=== PATIENT | male | born 1955 | race Caucasian/White ===

== ENCOUNTER 2017-01-21 16:34 | Emergency (ER) | payer MEDICARE, OTHER ==
[2017-01-21 16:56] LABS: BASOPHILS 0.5 % (0.0-2.0); EOSINOPHILS# 0.2 X 10^3uL (0.0-0.4); HEMATOCRIT 31.3 % (42.0-54.0); LYMPHOCYTES# 1.3 X 10^3uL (0.8-3.8); MONOCYTES 15.6 % (2.0-10.0); MONOCYTES# 1.5 X 10^3uL (0.2-1.0)
[2017-01-21 16:59] LABS: EOSINOPHILS 2.3 % (0.0-6.0); LYMPHOCYTES 13.4 % (20.0-40.0); MEAN PLATELET VOLUME 8.9 fL (7.4-10.4); NEUTROPHILS 68.2 % (54.0-75.0); NEUTROPHILS# 6.8 X 10^3uL (2.6-6.7); PLATELET COUNT 190 X 10^3uL (130-440); RED BLOOD COUNT 4.19 X 10^6uL (4.20-6.10); RED CELL DISTRIBUTION WIDTH 17.4 % (11.5-14.5); WHITE BLOOD COUNT 9.8 X 10^3uL (3.9-10.7)
[2017-01-21 17:02] LABS: BLOOD UREA NITROGEN 10 mg/dL (9-20); CHLORIDE 108 mmol/L (98-107); EST GLOMERULAR FILTRATION RATE > 60 mL/min; GLUCOSE 175 mg/dL (70-100); MAGNESIUM 2.1 mg/dL (1.6-2.3); POTASSIUM 4.3 mmol/L (3.5-5.1); SODIUM 140 mmol/L (137-145)
[2017-01-21 17:06] LABS: MEAN CELL VOLUME 74.7 fL (80.0-100.0)
[2017-01-21 17:15] LABS: TROPONIN I < 0.012 ng/mL (0.00-0.034)
[2017-01-21] MEDS ORDERED: NITROGLYCERIN 0.4 MG TAB.SUBL SUBLINGUAL ONE (17:16)
--- NOTE | 2017-01-21 17:30 | RADIOLOGY REPORT ---
HISTORY: Chest pain, shortness of breath COMPARISON: None. FINDINGS: 1 view of the chest obtained. Heart size within normal limits. Prior median sternotomy. Left-sided ca rdiac pacer in place. No focal pulmonary consolidation. No large effusion or pneumothorax. Bones are unremarkable. IMPRESSION: No acute cardiopulmonary abnormality. Final Electronic Signature: This report was electronically signed by Alexei Arellano MD on 01/21/2017 5:28 PM. [email or web address] /
[2017-01-21] MEDS ORDERED: NITROGLYCERIN OINT 1 GM PACKET ONE (18:18)
[2017-01-21] MEDS ORDERED: FUROSEMIDE 40 MG/4 ML VIAL ONE (18:18)
--- NOTE | 2017-01-21 18:29 | CT REPORT ---
HISTORY: Elevated d-dimer, chest pain, shortness of breath COMPARISON: Chest radiograph same date. TECHNIQUE: This examination was performed using automated exposure control, adjustment of mA or kV according to patient size, and/or use of iterative reconstruction technique. Axial CT imaging from the thoracic i nlet through the upper abdomen following administration of IV contrast during peak opacification of t he pulmonary arteries, multiplanar reformatted and 3-D images are evaluated. 100 cc of Isovue-300 contrast. FINDINGS: There are patchy regions of groundglass airspace attenuation in the right lung upper lobe. There is a small left pleural effusion layering dependently. There is no pneumothorax. There is some atelectasi s in the left lung anteriorly and a small volume of pleural fluid within the left oblique fissure galen r the apex. There is an implanted cardiac pacemaker and sternotomy wires. There is no pericardial effusion. The g reat vessels are normal size. There are a few mediastinal lymph nodes at the upper limits of normal s ize but there is no gross lymphadenopathy. No destructive osseous lesion is seen. No acute fracture is identified. There is a moderate-sized hiatal hernia. There is mild elevation of the right hemidiaphragm. There is sufficient contrast within the pulmonary arteries to exclude pulmonary emboli on this exam. Descending aorta, aortic arch, descending thoracic aorta widely patent, visualized portions of the in nominate artery, left and right subclavian, left and right vertebral, and left and right common carot id arteries patent, no aneurysm, dissection, or flow limiting stenosis. IMPRESSION: 1. No pulmonary embolism. 2. No aortic aneurysm or dissection. 3. Small volume left pleural effusion. 4. Moderate size hiatal hernia. 5. A few small patchy regions of groundglass airspace attenuation are present in the right lung upper lobe, nonspecific, but most likely related to an infectious or inflammatory process. 6. Mildly elevated right hemidiaphragm again seen. Results were discussed with Dr. Lorenzana at 6:25 PM 01/21/2017. Final Electronic Signature: This report was electronically signed by Alex Montilla MD on 01/21/2017 6 :27 PM. [email or web address] /
[2017-01-21] MEDS ORDERED: cefTRIAXone SODIUM 1,000 MG/10 ML VIAL ONE (18:44)
[2017-01-21] MEDS ORDERED: AZITHROMYCIN 250 MG TABLET PO ONE (18:44)
[2017-01-21] MEDS ORDERED: NORMAL SALINE 100 ML IV ONE (18:49)
[2017-01-21] MEDS ORDERED: NORMAL SALINE 250 ML IV ONE (18:54)
--- NOTE | 2017-01-21 19:35 | ER NURSING DOCUMENTATION ---
Nurse's Notes [facility] Name:Jeffrey Thompson Age:61 yrs Sex:Male :1955 Arrival Date:01/21/2017 Time:16:34 BedTrauma-C Private MD: Diagnosis:CHF (Congestive Heart Failure) Presentation: 01/21 16:40 Acuity: LESLI 2 st 16:46 Presenting complaint: Patient states: pt has increased SOB and chest discomfort over st the last two days. pt is from [place] and had cardiac surgery in December. Transition of care: patient was not received from another setting of care. AIR CAT ACTIVATION no other N/A. 16:46 Method Of Arrival: Private Vehicle st Triage Assessment: 16:48 General: Appears in no apparent distress, Behavior is cooperative. Pain: Complains of st pain in anterior aspect of left upper chest and left upper quadrant Pain currently is 4 out of 10 on a pain scale. Pain began 1 day ago. Cardiovascular: Capillary refill < 3 seconds Heart tones present Edema is 2+ to left ankle and right ankle worst than usual. Respiratory: Airway is patent Respiratory effort is even, unlabored, Respiratory pattern is regular, symmetrical, Reports shortness of breath at rest on exertion the patient has moderate shortness of breath. Historical: - Allergies: No known drug Allergies; - Home Meds: 1. aspirin 81 mg oral tab 2. Lialda oral 3. sovalol 4. Lasix Oral 5. genovia 6. wellcall 7. Metformin Oral 8. Glipizide Oral 9. Zegerid oral 10. docusate sodium Oral 11. Morphine Oral - PMHx: DIABETES - NIDDM; IRRITABLE BOWEL SYNDROME; CHF; - PSHx: pacmaker; open heart surgery; CABAGE; - Tetanus: < 10 years. - Ebola Screening: : Patient denies exposure to infectious person. Patient denies travel to an Ebola-affected area in the 21 days before illness onset. . - Immunization history: Pneumococcal vaccine status is unknown. - Social history: Smoking status: Patient states former smoker of tobacco. Patient/guardian denies using alcohol, marijuana. Screenin:50 Infectious Disease Risk None. Abuse screen: Denies threats or abuse. Denies injuries st from another. Nutritional screening: No deficits noted. Vital Signs: 16:50 BP 167 / 93; Pulse 76; Resp 21; Pulse Ox 94% on R/A; Pain 4/10; st 16:53 Weight 103.87 kg; st 17:30 Pain 0/10; st 18:00 BP 136 / 64 (auto/); st 18:01 Pulse 75 MON; Resp 21; Pulse Ox 97% ; st 18:06 Pulse 75 MON; Resp 20; Pulse Ox 97% ; st 18:30 BP 132 / 69 (auto/); st 18:31 Pulse 75 MON; Resp 19; Pulse Ox 97% ; Pain 1/10; st ED Course: 16:35 Patient arrived in ED. ama 16:38 Marshall Lorenzana MD is Attending Physician. tl1 16:40 Mariajose Gaspar RN is Primary Nurse. st 16:[address] 16:40 EKG done per protocol. Performed by ED Staff. Shown to ED physician. st 16:44 Inserted peripheral IV: 20 gauge in right antecubital area and blood collected. st 16:51 Valuables Remains with patient Patient has correct armband on for positive st identification. Placed in gown. Bed in low position. environmental monitoring specialist on. Pulse ox on. NIBP on. 16:51 Oxygen Oxygen administration via nasal cannula @ 2L/min. st 17:33 Assisted to bedside commode. st 17:42 EKG attached sj 17:[address] 18:[address] Administered Medications: 17:10 Drug: Nitroglycerin 0.4 mg; Route: Sublingual; st 18:45 Follow up: Response: Pain is decreased st 18:09 Drug: Lasix 40 mg; Route: IVP; Site: right antecubital; st 18:45 Follow up: Response: No adverse reaction st 18:09 Drug: Nitroglycerin Ointment 2 % 1 inches; Route: Transdermal; Site: anterior chest st wall; 18:51 Dru grams of (cefTRIAXone 1 grams, NS 0.9% 100 ml); Route: IVPB; Infused Over: 30 st mins; Site: left antecubital; 19:06 Follow up: IV Status: Completed infusion; IV Intake: 100ml sj 18:51 Drug: Zithromax 500 mg; Route: PO; st 19:10 Follow up: Response: No adverse reaction st Intake: 19:06 IV: 100ml; Total: 100ml. sj Output: 18:45 Urine: 350ml (Voided); Total: 350ml. st 19:13 Urine: 350ml (Voided); Total: 700ml. st Outcome: 18:44 Transferred: Patient will be transferred to: [facility]. Facility st Acceptance Time: January 21, 2017 at 18:44 Patient's face sheet was faxed to accepting facility. Face Sheet included patient's name, address, age, gender, contact information and insurance information. Patient will be transported by: [facility] ground. 18:56 Report given to Rambo TORRES at [facility] 19:03 Transferred: Nurse and Physician Charting and Notes were sent to Accepting Facility. st All tests and/or procedures with results, if applicable, were sent to accepting facility. 19:03 Condition: stable 19:03 Instructed on need for transfer 19:34 ER care complete, transfer ordered by . 19:34 Patient left the ED. sj Signatures: Mariajose Gaspar RN RN st Abbott, Russel Weaver, Reg Marshall Schafer MD MD tl1 Julia Cui
--- NOTE | 2017-01-21 19:35 | ER PHYSICIAN DOCUMENTATION ---
Physician Documentation [facility] Name:Jeffrey Thompson Age:61 yrs Sex:Male :1955 Arrival Date:01/21/2017 Time:16:34 BedTrauma-C Private MD: Marshall Abraham Disposition: 01/22 09:18 Critical Care: not applicable. Chart complete. Chart complete. tl1 Disposition: 01/21/17 19:34 Transfer ordered to [facility]. Diagnosis is CHF (Congestive Heart Failure). - Reason for transfer: Higher level of care. - Accepting physician is Tahir. - Condition is Fair. COBRA Form completed? Yes Transfer - Mode of Transportation Ambulance HPI: 01/21 16:38 This 61 yrs old Male presents to ER with complaints of Chest Pain, Breathing tl1 Difficulty. 16:38 The patient or guardian reports chest pain that is located primarily in the anterior tl1 chest wall, . Onset: suddenly, yesterday. The pain does not radiate. There has been no movement of pain. The chest pain is described as a pressure, sharp. He has had about 30 episodes of pain that he says is similar to his prior angina, which last from 30 seconds to several minutes, along with progressive dyspnea since arriving in [place] from [place] 2 days ago. he underwent vessel CABG IN October of this year. Denies LE pain or swelling. No RF for DVT/PE. Denies F/C/S/COUGH/hemoptysis.. Historical: - Allergies: No known drug Allergies; - Home Meds: 1. aspirin 81 mg oral tab 2. Lialda oral 3. sovalol 4. Lasix Oral 5. genovia 6. wellcall 7. Metformin Oral 8. Glipizide Oral 9. Zegerid oral 10. docusate sodium Oral 11. Morphine Oral - PMHx: DIABETES - NIDDM; IRRITABLE BOWEL SYNDROME; CHF; - PSHx: pacmaker; open heart surgery; CABAGE; - Tetanus: < 10 years. - Ebola Screening: : Patient denies exposure to infectious person. Patient denies travel to an Ebola-affected area in the 21 days before illness onset. . - Immunization history: Pneumococcal vaccine status is unknown. - Social history: Smoking status: Patient states former smoker of tobacco. Patient/guardian denies using alcohol, marijuana. ROS: 18:40 Cardiovascular: Positive for chest pain, Negative for edema, orthopnea, palpitations, tl1 paroxysmal nocturnal dyspnea. 18:40 Respiratory: Positive for dyspnea on exertion, shortness of breath, Negative for cough, orthopnea, pleurisy, sputum production, wheezing. 18:40 All other systems are negative. Exam: 18:40 Head/Face: Normocephalic, atraumatic. tl1 Eyes: Pupils equal round and reactive to light, extra-ocular motions intact. Lids and lashes normal. Conjunctiva and sclera are non-icteric and not injected. Cornea within normal limits. Periorbital areas with no swelling, redness, or edema. ENT: Nares patent. No nasal discharge, no septal abnormalities noted. Tympanic membranes are normal and external auditory canals are clear. Oropharynx with no redness, swelling, or masses, exudates, or evidence of obstruction, uvula midline. Mucous membranes moist. Neck: Trachea midline, no thyromegaly or masses palpated, and no cervical lymphadenopathy. Supple, full range of motion without nuchal rigidity, or vertebral point tenderness. No Meningismus. 18:40 Chest/axilla: Normal chest wall appearance and motion. Nontender with no deformity. tl1 No lesions are appreciated. Abdomen/GI: Soft, non-tender, with normal bowel sounds. No distension or tympany. No guarding or rebound. No evidence of tenderness throughout. Skin: Warm, dry with normal turgor. Normal color with no rashes, no lesions, and no evidence of cellulitis. 18:40 MS/ Extremity: Pulses equal, no cyanosis. Neurovascular intact. Full, normal range of motion. 18:40 Constitutional: The patient appears alert, awake, well developed, well hydrated, well groomed, well nourished, uncomfortable. 18:40 Cardiovascular: Rate: normal, Rhythm: regular, Heart sounds: normal, Edema: is not appreciated, JVD: is not appreciated. 18:40 Respiratory: the patient does not display signs of respiratory distress, Respirations: normal, Breath sounds: are normal, no rales, rhonchi, no stridor, no wheezing, decreased breath sounds, that are moderate, are heard in the left posterior lower lobe, right posterior middle lobe and right posterior lower lobe. 18:40 Neuro: Exam negative for acute changes. Vital Signs: 16:50 BP 167 / 93; Pulse 76; Resp 21; Pulse Ox 94% on R/A; Pain 4/10; st 16:53 Weight 103.87 kg; st 17:30 Pain 0/10; st 18:00 BP 136 / 64 (auto/); st 18:01 Pulse 75 MON; Resp 21; Pulse Ox 97% ; st 18:06 Pulse 75 MON; Resp 20; Pulse Ox 97% ; st 18:30 BP 132 / 69 (auto/); st 18:31 Pulse 75 MON; Resp 19; Pulse Ox 97% ; Pain 1/10; st MDM: 16:38 Patient medically screened. tl1 16:55 ECG:. tl1 17:00 Differential diagnosis: acute myocardial infarction, acute pericarditis, anxiety, tl1 coronary artery disease pleurisy, pneumonia, pulmonary embolus, unstable angina. Patient took aspirin within the past 24 hours. Data reviewed: vital signs, nurses notes, lab test result(s), EKG, radiologic studies, plain films, and as a result, I will *Transfer Patient. Data interpreted: systems accountant: Pulse oximetry:. Special discussion: That he would benefit from a decrease in altitude as well as care in a facility with more specialty expertise.. 17:42 EKG attached 01/21 17:07 Order name: CBC AUTO DIF, MDIF/RMOR IF IND; Complete Time: 18: EDDE 01/21 17:52 Interpretation: WHITE BLOOD COUNT 9.8; HEMOGLOBIN 10.0; HEMATOCRIT 31.3; PLATELET COUNT tl1 190. 01/21 17:16 Order name: BASIC METABOLIC PANEL; Complete Time: 18:01 EDDE 01/21 17:52 Interpretation: SODIUM 140; POTASSIUM 4.3; CHLORIDE 108; CARBON DIOXIDE 22; GLUCOSE tl1 175; BLOOD UREA NITROGEN 10; CREATININE 0.9; CALCIUM 9.0. 01/21 17:16 Order name: MAGNESIUM; Complete Time: 18:01 EDDE 01/21 17:52 Interpretation: Normal: MAGNESIUM 2.1. [facility] 01/21 17:16 Order name: TROPONIN I; Complete Time: 18:01 EDDE 01/21 17:53 Interpretation: Normal: TROPONIN I < 0.012. [facility] 01/21 17:25 Order name: DDIMER; Complete Time: 18:01 EDDE 01/21 17:53 Interpretation: Abnormal: DDIMER 1658. 1 01/21 17:34 Order name: BNP,NT-PRO; Complete Time: 18:01 EDMS 01/21 17:53 Interpretation: Abnormal: BNP,NT-PRO 1110. tl01/21 17:32 Order name: CHEST; SINGLE VIEW [id number]; Complete Time: 18:01 EDMS 01/21 Interpretation: Normal., NAD. Post op changes, See radiologist report. 01/21 18:31 Order name: CAT SCAN; CHEST ANGIO [id number]; Complete Time: 08:47 EDMS 01/22 08:46 Interpretation: See note. tl01/21 16:53 Order name: 12-lead EKG; Complete Time: 17:01 1 01/21 16:53 Order name: Iv Saline Lock; Complete Time: 17:01 1 01/21 16:53 Order name: Place Patient On Monitor; Complete Time: 17:01 1 01/21 16:53 Order name: Pulse Ox Continuous; Complete Time: 17:01 tl1 EC:33 Rate is 76 beats/min. Rhythm is regular. NV interval is normal at 111 msec. QRS tl1 interval is normal at 87 msec. QT interval is normal at 404 msec. Q waves are Present in leads III, aVR. T waves are Flattened in leads II, III, aVF, V1, V2, V3, V4, V5, V6. Clinical impression: Atrial paced rhythm. Interpreted by me. Reviewed by me. Dispensed Medications: 17:10 Drug: Nitroglycerin 0.4 mg; Route: Sublingual; st 18:45 Follow up: Response: Pain is decreased st 18:09 Drug: Lasix 40 mg; Route: IVP; Site: right antecubital; st 18:45 Follow up: Response: No adverse reaction st 18:09 Drug: Nitroglycerin Ointment 2 % 1 inches; Route: Transdermal; Site: anterior chest st wall; 18:51 Dru grams of (cefTRIAXone 1 grams, NS 0.9% 100 ml); Route: IVPB; Infused Over: 30 st mins; Site: left antecubital; 19:06 Follow up: IV Status: Completed infusion; IV Intake: 100ml sj 18:51 Drug: Zithromax 500 mg; Route: PO; st 19:10 Follow up: Response: No adverse reaction st Signatures: Mariajose Gaspar, RN RN Marshall Patino MD MD tl1 Julia Cui
== END 2017-01-21 19:35 | disposition short-term general hospital (02) ==
LOC: ER 16:34
DX: I50.20 Unspecified systolic (congestive) heart failure (principal); R07.9 Chest pain, unspecified; R06.00 Dyspnea, unspecified; R06.02 Shortness of breath; Z95.0 Presence of cardiac pacemaker; Z74.3 Need for continuous supervision; Z95.1 Presence of aortocoronary bypass graft; E11.9 Type 2 diabetes mellitus without complications; Z79.899 Other long term (current) drug therapy
CPT/HCPCS: 71010; 71275; 80048; 83735; 83880; 84484; 85025; 85379; 93005; 96374; 96375; 99285; A0425; A0427; J0696; J1940; J7050; Q0144